=== PATIENT | female | born 2000 | race Caucasian/White ===

== ENCOUNTER 2023-06-03 20:25 | Emergency (ER) | payer OTHER ==
[2023-06-03] MEDS: Tetracaine HCl/PF 0.5% 4 ML Bottle EYEBOTH ONE (20:45)
[2023-06-03] MEDS: Gentamicin 0.3% Ophth Soln 5 ML Bottle EYEBOTH STA (21:24)
== END 2023-06-03 21:32 | disposition home or self-care (01) ==
LOC: MW.ED 20:25
DX: T54.91XA Toxic effect of unspecified corrosive substance, accidental (unintentional), initial encounter (principal); T26.92XA Corrosion of left eye and adnexa, part unspecified, initial encounter; T26.91XA Corrosion of right eye and adnexa, part unspecified, initial encounter
CPT/HCPCS: 99283; A9270

== ENCOUNTER 2024-04-11 08:44 | Emergency (ER) | payer OTHER | END 2024-04-11 10:22 | disposition home or self-care (01) | LOC: MW.ED 08:44 | DX: R11.2 Nausea with vomiting, unspecified (principal); J06.9 Acute upper respiratory infection, unspecified; R19.7 Diarrhea, unspecified; Z75.8 Other problems related to medical facilities and other health care | CPT/HCPCS: 87428-QW; 87651-QW; 99284 ==